=== PATIENT | female | born 2000 | race Two or more races ===

== ENCOUNTER 2025-05-24 11:28 | Emergency (ER) | payer OTHER ==
[~2025-05-24] VITALS: Ht 172.7 cm; Wt 69.4 kg
[2025-05-24] MEDS ORDERED: PRENATE DHA SO1 EAC1 (11:49)
[2025-05-24 12:33] LABS: BASO % 0.4 % (0.1-1.2); EOS # 0.04 (0.04-0.54); EOS % 0.6 % (0.7-7.0); LYMPH # 0.97 (1.18-3.74); LYMPH % 13.4 % (19.3-53.1); MEAN PLATELET VOLUME 9.30 fl (9.4-12.4); MONO # 0.29 (0.24-0.82); MONO % 4.0 % (4.7-12.5); NEUT # 5.86 (1.56-6.13); NEUT % 81.2 % (34.0-71.1); RED CELL DISTRIBUTION WIDTH 13.2 % (11.6-14.4)
[2025-05-24 12:52] LABS: URINE APPEARANCE Cloudy; URINE BILIRRUBIN Negative (NEGATIVE); URINE BLOOD Negative; URINE COLOR Yellow; URINE GLUCOSE Negative (NEGATIVE); URINE KETONE 15 (NEGATIVE); URINE LEUKOCYTE Trace; URINE NITRATE Negative; URINE PROTEIN Negative (NEGATIVE); URINE UROBILINOGEN 0.2 E.U./dl
[2025-05-24 12:55] LABS: URINE BACTERIA 4831.0 uL (0.0-1933); URINE EPITHELIAL CELLS 152.3 uL (0.0-38.8); URINE RBC 15.3 uL (0.0-20.8); URINE WBC 14.1 uL (0.0-23.2)
[2025-05-24 13:10] LABS: URINE CAST 0.29 uL (0.0-1.40); URINE YEAST FEW /hpf
[2025-05-24] MEDS ORDERED: CEFTRIAXONE SODIUM 1,000 MG VIAL IV ONE (14:30)
== END 2025-05-24 14:36 | disposition home or self-care (01) ==
LOC: ER 11:44
PROVIDERS: Emergency Medicine
DX: O23.41 Unspecified infection of urinary tract in pregnancy, first trimester (principal); N39.0 Urinary tract infection, site not specified; Z3A.13 13 weeks gestation of pregnancy

== ENCOUNTER 2025-05-30 07:39 | Emergency (ER) | payer OTHER ==
[~2025-05-30] VITALS: Ht 172.7 cm; Wt 70.8 kg
[~2025-05-30 07:39] MED LIST: PRENATE DHA SO1 EAC1
[2025-05-30 08:50] LABS: BASO % 0.5 % (0.1-1.2); EOS # 0.05 (0.04-0.54); EOS % 0.9 % (0.7-7.0); LYMPH # 0.91 (1.18-3.74); LYMPH % 15.9 % (19.3-53.1); MEAN PLATELET VOLUME 9.40 fl (9.4-12.4); MONO # 0.30 (0.24-0.82); MONO % 5.2 % (4.7-12.5); NEUT # 4.43 (1.56-6.13); NEUT % 77.2 % (34.0-71.1); RED CELL DISTRIBUTION WIDTH 13.2 % (11.6-14.4)
[2025-05-30 09:12] LABS: URINE APPEARANCE Clear; URINE BILIRRUBIN Negative (NEGATIVE); URINE BLOOD Negative; URINE COLOR Yellow; URINE GLUCOSE Negative (NEGATIVE); URINE KETONE Negative (NEGATIVE); URINE LEUKOCYTE Negative; URINE NITRATE Negative; URINE PROTEIN Negative (NEGATIVE); URINE UROBILINOGEN 1.0 E.U./dl
[2025-05-30 09:15] LABS: URINE BACTERIA 4.7 uL (0.0-1933); URINE EPITHELIAL CELLS 18.4 uL (0.0-38.8); URINE RBC 10.8 uL (0.0-20.8); URINE WBC 2.4 uL (0.0-23.2)
[2025-05-30 10:24] LABS: URINE CAST 0.00 uL (0.0-1.40)
[2025-05-30] MEDS ORDERED: PYRIDIUM100 M1 PO (10:47)
== END 2025-05-30 10:58 | disposition home or self-care (01) ==
LOC: ER 07:39
PROVIDERS: Emergency Medicine
DX: Z34.90 Encounter for supervision of normal pregnancy, unspecified, unspecified trimester (principal); Z3A.14 14 weeks gestation of pregnancy; R10.2 Pelvic and perineal pain; Z87.440 Personal history of urinary (tract) infections

== ENCOUNTER 2025-06-12 20:48 | Emergency (ER) | payer OTHER ==
[~2025-06-12] VITALS: Ht 172.7 cm; Wt 70.3 kg
[~2025-06-12 20:48] MED LIST changes: +PYRIDIUM100 M1 PO
[2025-06-12 22:01] LABS: BASO % 0.4 % (0.1-1.2); EOS # 0.14 (0.04-0.54); EOS % 1.9 % (0.7-7.0); LYMPH # 1.24 (1.18-3.74); LYMPH % 17.2 % (19.3-53.1); MEAN PLATELET VOLUME 9.30 fl (9.4-12.4); MONO # 0.49 (0.24-0.82); MONO % 6.8 % (4.7-12.5); NEUT # 5.27 (1.56-6.13); NEUT % 73.3 % (34.0-71.1); RED CELL DISTRIBUTION WIDTH 13.7 % (11.6-14.4)
[2025-06-12 22:16] LABS: COVID-19 AG NEGATIVE (NEGATIVE)
[2025-06-12] MEDS ORDERED: GILTUSS HONEY118 ML PO (23:06)
[2025-06-12] MEDS ORDERED: ACETAMINOPHEN500 M1 PO (23:06)
[2025-06-12] MEDS ORDERED: ZITHROMAX TRI-500 MG PO (23:06)
== END 2025-06-12 23:20 | disposition home or self-care (01) ==
LOC: ER 20:48
PROVIDERS: Preventive Medicine Public Health & General Preventive Medicine
DX: Z34.90 Encounter for supervision of normal pregnancy, unspecified, unspecified trimester (principal); Z3A.14 14 weeks gestation of pregnancy; J06.9 Acute upper respiratory infection, unspecified; R50.9 Fever, unspecified; R51.9 Headache, unspecified; Z20.822 Contact with and (suspected) exposure to COVID-19